=== PATIENT | female | born 1950 | race Caucasian/White ===

== ENCOUNTER 2025-02-04 16:01 | Inpatient (IN) | payer OTHER ==
[~2025-02-04] VITALS: Ht 157.5 cm; Wt 68.0 kg
[2025-02-04 16:41] LABS: PLATELET COUNT (AUTO) 331 K/uL (150-450); RED BLOOD CELL COUNT(AUTO) 2.45 MIL/uL (4.0-5.2); RED CELL DISTRIBUTION WIDTH 20.5 % (11.5-15.0); WHITE BLOOD COUNT (AUTO) 9.0 K/uL (4.3-11.0)
[2025-02-04 16:48] LABS: CALCIUM, SERUM 7.9 mg/dL (8.5-10.1); CREATININE 1.2 mg/dL (0.6-1.3); SODIUM SERUM 137 mmol/L (136-145); UREA NITROGEN, BLOOD 15 mg/dL (7-18)
[2025-02-04 16:51] LABS: INR 1.21 (0.91-1.10)
[2025-02-04 16:53] LABS: ASPARTATE AMINOTRANSFERASE 41 U/L (15-37); TOTAL PROTEIN, SERUM 6.0 g/dL (6.4-8.2)
[2025-02-04] MEDS ORDERED: NA P133E RC (17:20)
[2025-02-04] MEDS ORDERED: CLOP75TA15 PO (17:20)
[2025-02-04] MEDS ORDERED: METO50TA16 PO (17:20)
[2025-02-04] MEDS ORDERED: ZINC220C6 PO (17:20)
[2025-02-04] MEDS ORDERED: FURO40TA5 PO (17:20)
[2025-02-04] MEDS ORDERED: PANT40TA49 PO (17:20)
[2025-02-04] MEDS ORDERED: CHOL100040 PO (17:20)
[2025-02-04] MEDS ORDERED: ASCO-495 PO (17:20)
[2025-02-04] MEDS ORDERED: ASPI-1169 PO (17:20)
[2025-02-04] MEDS ORDERED: LACT1CAP89 PO (17:20)
[2025-02-04] MEDS ORDERED: FERR325T24 PO (17:20)
[2025-02-04] MEDS ORDERED: SPIR50TA5 PO (17:20)
[2025-02-04] MEDS ORDERED: LACT10SO29 PO (17:20)
[2025-02-04] MEDS ORDERED: DAPA5TAB PO (17:20)
[2025-02-04] MEDS ORDERED: VITA1TAB56 PO (17:20)
[2025-02-04] MEDS ORDERED: POTA20TA29 PO (17:20)
[2025-02-04] MEDS ORDERED: ACET325T53 PO (17:20)
[2025-02-04] MEDS ORDERED: EPOE1VIA7 SQ (17:20)
[2025-02-04] MEDS ORDERED: ATOR40TA PO (17:20)
[2025-02-04] MEDS ORDERED: MAGN400O6 PO (17:20)
[2025-02-04] MEDS ORDERED: BISA10SU11 RC (17:20)
[2025-02-04] MEDS ORDERED: RIFA550T PO (17:20)
[2025-02-04] MEDS ORDERED: MULT-594 PO (17:20)
[2025-02-04] MEDS ORDERED: FUROSEMIDE 20 MG/2 ML VIAL ONE (17:33)
[2025-02-04] MEDS: FUROSEMIDE 20 MG/2 ML VIAL IV ONE (17:53)
[2025-02-04 18:20] LABS: APPEARANCE,URINE CLEAR (CLEAR); BLOOD, URINE Trace-lysed Ery/uL (NEGATIVE); LEUKOCYTE ESTERASE ,URINE Trace (NEGATIVE); NITRITE, URINE POSITIVE (NEGATIVE); UGLUCOSE 500 MG/DL mg/dL (NEGATIVE)
[2025-02-04 18:21] LABS: ADD URINE CULTURE YES; URINE AMORPHOUS URATE Few /HPF (None Seen)
[2025-02-04 18:22] LABS: HYALINE CASTS, URINE Few /LPF (None Seen)
[2025-02-04] MEDS ORDERED: ACETAMINOPHEN 325 MG TABLET PO PRN (18:30)
[2025-02-04] MEDS ORDERED: DEXTROSE 50%-WATER 50 ML DISP.SYRIN IV PRN (18:30)
[2025-02-04] MEDS ORDERED: MAGNESIUM HYDROXIDE 30 ML UDC PO PRN (18:30)
[2025-02-04] MEDS ORDERED: MAG HYDROX/AL HYDROX/SIMETH 30 ML UDC PO PRN (18:30)
[2025-02-04] MEDS ORDERED: BISACODYL SUPP (10 MG) 10 MG/SUPP.RECT SUPP.RECT RC PRN (18:30)
[2025-02-04] MEDS ORDERED: Z GUARD REMEDY 4 OZ OINT TP PRN (18:30)
[2025-02-04] MEDS ORDERED: EPOETIN ALFA (10,000 UNIT) 10,000 UNIT/ML VIAL SQ SCH (20:00)
[2025-02-04] MEDS: CEFTRIAXONE 1 G in IV D5W 50 ML IV SCH (21:15)
[2025-02-04] MEDS: POTASSIUM CHLORIDE 20 MEQ POWDER PACKET PO SCH (21:17)
[2025-02-04] MEDS: LACTULOSE 10 G/15 ML UDC (PYXIS) PO SCH (21:17)
[2025-02-04] MEDS: ATORVASTATIN 40 MG TABLET PO SCH (21:18)
[2025-02-04] MEDS: EPOETIN ALFA (2000 UNIT) 2,000 UNIT/ML VIAL SQ SCH (21:22)
[2025-02-04] MEDS: BLOOD SUGAR DIAGNOSTIC 1 EACH STRIP IN SCH (23:07)
[2025-02-04] MEDS: INSULIN REGULAR, HUMAN 100 UNIT/ML 3 ML VIAL SQ PRN (23:09)
[2025-02-05] VITALS: BP 133/72; TEMP 98.1; O2SAT 96
[2025-02-05 04:00] VITALS: BP 124/60; TEMP 98.6; O2SAT 98
[2025-02-05 06:48] LABS: PLATELET COUNT (AUTO) 288 K/uL (150-450); RED BLOOD CELL COUNT(AUTO) 2.47 MIL/uL (4.0-5.2); RED CELL DISTRIBUTION WIDTH 19.0 % (11.5-15.0); WHITE BLOOD COUNT (AUTO) 6.7 K/uL (4.3-11.0)
[2025-02-05 07:42] LABS: CALCIUM, SERUM 7.8 mg/dL (8.5-10.1); CREATININE 0.9 mg/dL (0.6-1.3); PHOSPHORUS 3.4 mg/dL (2.5-4.9); SODIUM SERUM 140.0 mmol/L (136-145); UREA NITROGEN, BLOOD 15.0 mg/dL (7-18)
[2025-02-05 08:00] VITALS: BP 139/61; TEMP 98.4; O2SAT 98
[2025-02-05] MEDS: MULTIVIT W/MINERALS 1 TAB TABLET PO SCH (08:10)
[2025-02-05] MEDS: SPIRONOLACTONE 25 MG TABLET PO SCH (08:10)
[2025-02-05] MEDS: ZINC SULFATE 220 MG CAPSULE PO SCH (08:11)
[2025-02-05] MEDS: CHOLECALCIFEROL 1,000 UNIT TABLET (VIT D3) PO SCH (08:11)
[2025-02-05] MEDS: ASCORBIC ACID 500 MG TABLET PO SCH (08:11)
[2025-02-05] MEDS: FERROUS SULFATE (325 MG) 325 MG/TAB TABLET PO SCH (08:11)
[2025-02-05] MEDS: RIFAXIMIN 550 MG TABLET PO SCH (08:11)
[2025-02-05] MEDS: FUROSEMIDE 40 MG TABLET PO SCH (08:11)
[2025-02-05] MEDS: VITAMIN B COMP W-C 1 TAB TABLET PO SCH (08:11)
[2025-02-05] MEDS: PANTOPRAZOLE 40 MG TABLET.DR PO SCH (08:11)
[2025-02-05] MEDS: METOPROLOL TARTRATE 50 MG TABLET PO SCH (08:12)
[2025-02-05] MEDS: DAPAGLIFLOZIN PROPANEDIOL 5 MG TABLET PO SCH (08:13)
[2025-02-05 12:00] VITALS: BP 131/55; TEMP 98.1; O2SAT 100
[2025-02-05] MEDS: FUROSEMIDE 20 MG/2 ML VIAL IV ONE (13:59)
[2025-02-05 16:00] VITALS: BP 123/51; TEMP 98.9; O2SAT 97
[2025-02-05 20:00] VITALS: BP 123/57; TEMP 99; O2SAT 98
[2025-02-06 04:00] VITALS: BP 136/58; TEMP 98.1; O2SAT 97
[2025-02-06 08:00] VITALS: BP 121/100; TEMP 98.2; O2SAT 98
[2025-02-06] MEDS: ONDANSETRON HCL/PF 4 MG/2 ML VIAL IVP PRN (11:05)
[2025-02-06 16:00] VITALS: BP 123/57; TEMP 98.1; O2SAT 98
[2025-02-06 20:02] LABS: OCCULT BLOOD STOOL POSITIVE (NEGATIVE)
[2025-02-06] MEDS: POTASSIUM CHLORIDE 20 MEQ TAB.PRT.SR PO SCH (22:27)
[2025-02-06 23:48] VITALS: BP 124/43; TEMP 98.1
[2025-02-07 04:56] VITALS: BP 118/59; TEMP 98.1
[2025-02-07 06:30] LABS: PLATELET COUNT (AUTO) 354 K/uL (150-450); RED BLOOD CELL COUNT(AUTO) 2.61 MIL/uL (4.0-5.2); RED CELL DISTRIBUTION WIDTH 19.3 % (11.5-15.0); WHITE BLOOD COUNT (AUTO) 6.4 K/uL (4.3-11.0)
[2025-02-07 07:07] LABS: CALCIUM, SERUM 8.0 mg/dL (8.5-10.1); CREATININE 1.0 mg/dL (0.6-1.3); PHOSPHORUS 3.2 mg/dL (2.5-4.9); SODIUM SERUM 139.0 mmol/L (136-145); UREA NITROGEN, BLOOD 13.0 mg/dL (7-18)
[2025-02-07 08:00] VITALS: BP 116/57; TEMP 98.2; O2SAT 93
[2025-02-07] MEDS ORDERED: CEPH-570 PO (12:17)
[2025-02-07 16:00] VITALS: BP 127/63; TEMP 98.2; O2SAT 95
== END 2025-02-07 18:27 | DRG 663 ==
LOC: ER 16:10 → MEDSG1 19:20
PROVIDERS: ATTEND Nurse Practitioner Acute Care
PROC: 30233N1 Transfusion of Nonautologous Red Blood Cells into Peripheral Vein, Percutaneous Approach (ICD-10-PCS; principal; 2025-02-04)
DX: D64.9 Anemia, unspecified (principal); I50.33 Acute on chronic diastolic (congestive) heart failure; E11.22 Type 2 diabetes mellitus with diabetic chronic kidney disease; K74.60 Unspecified cirrhosis of liver; N39.0 Urinary tract infection, site not specified; E78.5 Hyperlipidemia, unspecified; K21.9 Gastro-esophageal reflux disease without esophagitis; B96.89 Other specified bacterial agents as the cause of diseases classified elsewhere; I13.0 Hypertensive heart and chronic kidney disease with heart failure and stage 1 through stage 4 chronic kidney disease, or unspecified chronic kidney disease; N18.9 Chronic kidney disease, unspecified; K55.20 Angiodysplasia of colon without hemorrhage; Z79.01 Long term (current) use of anticoagulants; Z79.82 Long term (current) use of aspirin; Z79.02 Long term (current) use of antithrombotics/antiplatelets; R74.01 Elevation of levels of liver transaminase levels
CPT/HCPCS: 36415; 71045-TC; 73090-TC; 73130-TC; 80048-TC; 80076-TC; 81001; 82272-TC; 82607-TC; 82962-TC; 83735-TC; 84100-TC; 85025-TC; 85027-TC; 85730-TC; 86850-TC; 87081-TC; 87086-TC; 87186-TC; 93307-TC; G0378; J0696; J0885; J1815; J1938; J2405; J7060; P9016

== ENCOUNTER 2025-03-02 09:50 | Inpatient (IN) | payer OTHER ==
[~2025-03-02] VITALS: Ht 167.6 cm; Wt 71.7 kg
[~2025-03-02 09:50] MED LIST: ACET325T53 PO; ASCO-495 PO; ASPI-1169 PO; ATOR40TA PO; BISA10SU11 RC; CEPH-570 PO; CHOL100040 PO; CLOP75TA15 PO; DAPA5TAB PO; EPOE1VIA7 SQ; FERR325T24 PO; FURO40TA5 PO; LACT10SO29 PO; LACT1CAP89 PO; MAGN400O6 PO; METO50TA16 PO; MULT-594 PO; NA P133E RC; PANT40TA49 PO; POTA20TA29 PO; RIFA550T PO; SPIR50TA5 PO; VITA1TAB56 PO; ZINC220C6 PO
[2025-03-02 10:16] LABS: PLATELET COUNT (AUTO) 247 K/uL (150-450); RED BLOOD CELL COUNT(AUTO) 2.57 MIL/uL (4.0-5.2); RED CELL DISTRIBUTION WIDTH 21.0 % (11.5-15.0); WHITE BLOOD COUNT (AUTO) 6.1 K/uL (4.3-11.0)
[2025-03-02 10:23] LABS: CALCIUM, SERUM 7.9 mg/dL (8.5-10.1); CREATININE 1.1 mg/dL (0.6-1.3); SODIUM SERUM 137.0 mmol/L (136-145); UREA NITROGEN, BLOOD 24.0 mg/dL (7-18)
[2025-03-02 10:29] LABS: ASPARTATE AMINOTRANSFERASE 49.0 U/L (15-37); TOTAL PROTEIN, SERUM 5.8 g/dL (6.4-8.2)
[2025-03-02 10:30] LABS: INR 1.19 (0.91-1.10)
[2025-03-02 10:49] LABS: NEUTROPHILS % (MANUAL) 64 (42-76)
[2025-03-02 10:50] LABS: EOSINOPHILS % (MANUAL) 1 % (0-4); LYMPHOCYTES % (MANUAL) 20 % (16-48); MONOCYTES % (MANUAL) 15 % (0-11.0); PLATELET ESTIMATE ADEQUATE
[2025-03-02] MEDS: METOPROLOL TARTRATE 50 MG TABLET PO SCH (11:00)
[2025-03-02] MEDS ORDERED: ACETAMINOPHEN 325 MG TABLET PO PRN (11:00)
[2025-03-02] MEDS ORDERED: ONDANSETRON HCL/PF 4 MG/2 ML VIAL IVP PRN (11:00)
[2025-03-02] MEDS: SPIRONOLACTONE 25 MG TABLET PO ONE (12:23)
[2025-03-02] MEDS: LACTULOSE 10 G/15 ML UDC (PYXIS) PO ONE (12:23)
[2025-03-02] MEDS: RIFAXIMIN 550 MG TABLET PO SCH (12:23)
[2025-03-02] MEDS: PANTOPRAZOLE 40 MG TABLET.DR PO SCH (12:24)
[2025-03-02] MEDS: CHOLECALCIFEROL 1,000 UNIT TABLET (VIT D3) PO SCH (12:24)
[2025-03-02] MEDS: ZINC SULFATE 220 MG CAPSULE PO SCH (12:24)
[2025-03-02] MEDS: FERROUS SULFATE (325 MG) 325 MG/TAB TABLET PO SCH (12:24)
[2025-03-02] MEDS: MULTIVIT W/MINERALS 1 TAB TABLET PO SCH (12:24)
[2025-03-02] MEDS: FUROSEMIDE 40 MG TABLET PO SCH (12:26)
[2025-03-02] MEDS: DAPAGLIFLOZIN PROPANEDIOL 5 MG TABLET PO SCH (14:21)
[2025-03-02 15:03] VITALS: BP 129/58; TEMP 98
[2025-03-02 15:18] VITALS: BP 129/52; TEMP 98
[2025-03-02 16:00] VITALS: BP 125/56; TEMP 98.1; O2SAT 94
[2025-03-02 16:03] VITALS: BP 121/58; TEMP 98.1
[2025-03-02 18:03] VITALS: BP 144/70; TEMP 98.1
[2025-03-02 20:00] VITALS: BP_SYST 131; BP_DIAS 56; BP_DIAS 86; TEMP 97.9; O2SAT 100
[2025-03-02] MEDS: ATORVASTATIN 40 MG TABLET PO SCH (21:29)
[2025-03-03 06:15] LABS: OCCULT BLOOD STOOL POSITIVE (NEGATIVE)
[2025-03-03 06:58] LABS: PLATELET COUNT (AUTO) 232 K/uL (150-450); RED BLOOD CELL COUNT(AUTO) 2.98 MIL/uL (4.0-5.2); RED CELL DISTRIBUTION WIDTH 19.7 % (11.5-15.0); WHITE BLOOD COUNT (AUTO) 4.4 K/uL (4.3-11.0)
[2025-03-03 07:18] LABS: CALCIUM, SERUM 8.4 mg/dL (8.5-10.1); CREATININE 1.3 mg/dL (0.6-1.3); PHOSPHORUS 3.9 mg/dL (2.5-4.9); SODIUM SERUM 140.0 mmol/L (136-145); UREA NITROGEN, BLOOD 23.0 mg/dL (7-18)
[2025-03-03 08:00] VITALS: BP 130/53; TEMP 97.5; O2SAT 99
[2025-03-03 16:00] VITALS: BP 130/54; TEMP 98.1; O2SAT 100
[2025-03-03 20:11] VITALS: BP 118/99; TEMP 98.3; O2SAT 100
[2025-03-04 07:03] LABS: PLATELET COUNT (AUTO) 270 K/uL (150-450); RED BLOOD CELL COUNT(AUTO) 2.99 MIL/uL (4.0-5.2); RED CELL DISTRIBUTION WIDTH 19.8 % (11.5-15.0); WHITE BLOOD COUNT (AUTO) 5.0 K/uL (4.3-11.0)
[2025-03-04 07:14] LABS: CALCIUM, SERUM 8.4 mg/dL (8.5-10.1); CREATININE 1.3 mg/dL (0.6-1.3); PHOSPHORUS 3.4 mg/dL (2.5-4.9); SODIUM SERUM 142.0 mmol/L (136-145); UREA NITROGEN, BLOOD 21.0 mg/dL (7-18)
[2025-03-04 08:50] VITALS: BP 138/54; TEMP 97.9; O2SAT 10
[2025-03-04 10:38] LABS: LYMPHOCYTES % (MANUAL) 15 % (16-48); MONOCYTES % (MANUAL) 12 % (0-11.0); NEUTROPHILS % (MANUAL) 73 (42-76)
[2025-03-04 10:39] LABS: PLATELET ESTIMATE ADEQUATE
== END 2025-03-04 13:00 | DRG 663 ==
LOC: ER 09:54 → MED 11:32
PROVIDERS: ADMIT Nurse Practitioner Acute Care; ATTEND Nurse Practitioner Acute Care
PROC: 30233N1 Transfusion of Nonautologous Red Blood Cells into Peripheral Vein, Percutaneous Approach (ICD-10-PCS; principal; 2025-03-02)
DX: D64.9 Anemia, unspecified (principal); I50.33 Acute on chronic diastolic (congestive) heart failure; E43 Unspecified severe protein-calorie malnutrition; N17.9 Acute kidney failure, unspecified; D68.59 Other primary thrombophilia; E11.22 Type 2 diabetes mellitus with diabetic chronic kidney disease; E88.09 Other disorders of plasma-protein metabolism, not elsewhere classified; K74.60 Unspecified cirrhosis of liver; I69.354 Hemiplegia and hemiparesis following cerebral infarction affecting left non-dominant side; N39.0 Urinary tract infection, site not specified; N18.9 Chronic kidney disease, unspecified; I13.0 Hypertensive heart and chronic kidney disease with heart failure and stage 1 through stage 4 chronic kidney disease, or unspecified chronic kidney disease; E78.5 Hyperlipidemia, unspecified; R19.5 Other fecal abnormalities; Z74.09 Other reduced mobility; R94.5 Abnormal results of liver function studies; Z68.25 Body mass index [BMI] 25.0-25.9, adult
CPT/HCPCS: 36415; 71045-TC; 80048-TC; 80076-TC; 82247-TC; 82248-TC; 82272-TC; 83735-TC; 84100-TC; 85025-TC; 85027-TC; 85045-TC; 85730-TC; 86850-TC; 87081-TC; 97110-TC; 97116-TC; 97530-TC; G0378; J7040; P9016